=== PATIENT | male | born 1960 | race Caucasian/White ===

== ENCOUNTER 2019-08-16 10:43 | Day surgery (SDC) | payer OTHER ==
[~2019-08-16] VITALS: Ht 180.3 cm; Wt 101.2 kg
[~2019-08-16 10:43] MED LIST: AMLO5TAB2 PO; DOCU5LIQ PO; FERROUS GLUCONATE PO; IRBE150T12 PO; IRONTAB2 PO; LEVA1TAB2 PO; LEVO2TA PO; LORTTAB5 PO; MULTCAP12 PO; NEUR100C PO; NORV2TAB PO; NS 1,000 ML IV ONE; OMEP40CA2 PO; OMEP40CA97 PO; REGL5TAB2 PO; SUCR1TA PO; SYNT150T PO; SYNT25TA PO; TRAM50TA2 PO; TYLE325T5 PO; ULTR50TA PO; [UNRECOGNIZED DRUG - CODE] PO
[2019-08-16] MEDS ORDERED: LIDOCAINE 2% INJ 100 MG/5 ML SDV (FOR ANES.) As Ordered ONE (12:23)
[2019-08-16] MEDS ORDERED: propofoL 200 MG/20 ML VIAL As Ordered ONE (12:23)
--- NOTE | 2019-08-16 12:44 | ROOR ---
Patient Name: Taz Otero Procedure Date: 08/16/2019 12:26 PM Date of : 1960 Age: 59 Room: [facility] Gender: Male Note Status: Finalized Procedure: Upper Endoscopy + Biopsies Indications: Dysphagia, Exclusion of Hampton's esophagus Providers: José Miguel Sanabria MD Referring MD: Barbara Fernandez DO Requesting Provider: Medicines: Monitored Anesthesia Care Complications: No immediate complications. Procedure: Pre-Anesthesia Assessment: - The heart rate, respiratory rate, oxygen saturations, blood pressure, adequacy of pulmonary ventilation, and response to care were monitored throughout the procedure. The Endoscope was introduced through the mouth, and advanced to the second part of duodenum. The upper GI endoscopy was accomplished without difficulty. The patient tolerated the procedure well. Findings: The Z-line was variable and was found 40 cm from the incisors. Multiple biopsies were obtained with cold forceps for evaluation to rule out Hampton's Esophagus randomly at the gastroesophageal junction. A small hiatal hernia was present. No other significant abnormalities were identified in a careful examination of the stomach. The exam of the duodenum was otherwise normal. Impression: - Z-line variable, 40 cm from the incisors. - Small hiatal hernia. - Multiple biopsies were obtained at the gastroesophageal junction. - The examination was otherwise normal. Recommendation: - Patient has a contact number available for emergencies. The signs and symptoms of potential delayed complications were discussed with the patient. Return to normal activities tomorrow. Written discharge instructions were provided to the patient. - Resume previous diet. - Discharge patient to home. - Follow an antireflux regimen. - Continue present medications. - Await pathology results. - Telephone GI clinic for pathology results in 1 week. - Return to referring physician. - The findings and recommendations were discussed with the patient's family. José Miguel Sanabria MD José Miguel Sanabria MD 08/16/2019 12:44:15 PM Electronically signed by José Miguel Sanabria MD Number of Addenda: 0 Note Initiated On: 08/16/2019 12:26 PM Estimated Blood Loss: Estimated blood loss: none.
[2019-08-16 13:06] VITALS: BP 174/92
== END 2019-08-16 13:17 | disposition home or self-care (01) ==
LOC: M OPP 10:43
PROVIDERS: ATTEND Internal Medicine Gastroenterology
DX: K22.8 Other specified diseases of esophagus (principal); K44.9 Diaphragmatic hernia without obstruction or gangrene; R13.10 Dysphagia, unspecified; F17.210 Nicotine dependence, cigarettes, uncomplicated; Z79.899 Other long term (current) drug therapy; Z88.0 Allergy status to penicillin; Z88.2 Allergy status to sulfonamides; Z88.8 Allergy status to other drugs, medicaments and biological substances; Z87.19 Personal history of other diseases of the digestive system

== ENCOUNTER → 2019-09-08 | Outpatient (REF) | payer OTHER ==
[~2019-09-08] MED LIST changes: -IRBE150T12 PO; +IRBE150T7 PO; -NS 1,000 ML IV ONE
[2019-09-08 17:03] LABS: PERCENT SATURATION 4.9 % (19.7-50.0)
== END ==
LOC: M LAB REF 16:24
PROVIDERS: ATTEND Internal Medicine
DX: D50.9 Iron deficiency anemia, unspecified (principal)

== ENCOUNTER → 2020-03-15 | Outpatient (CLI) | payer OTHER ==
[~2020-03-15] MED LIST changes: +FERR32TA PO; +VITA500T40 PO
== END ==
LOC: M LABSMTC 10:45
PROVIDERS: ATTEND Anesthesiology
DX: Z01.812 Encounter for preprocedural laboratory examination (principal)
CPT/HCPCS: C9803; U0003

== ENCOUNTER 2020-03-20 09:41 | Day surgery (SDC) | payer OTHER ==
[~2020-03-20] VITALS: Ht 180.3 cm; Wt 96.6 kg
[~2020-03-20 09:41] MED LIST changes: +NS 1,000 ML IV ONE
[2020-03-20] MEDS ORDERED: propofoL 200 MG/20 ML VIAL As Ordered ONE (10:40)
[2020-03-20] MEDS ORDERED: LIDOCAINE 2% 100MG/5ML SDV (FOR ANES.) As Ordered ONE (10:46)
[2020-03-20 11:45] VITALS: BP 92/93
--- NOTE | 2020-03-27 11:31 | ROOR ---
Patient Name: Taz Otero Procedure Date: 03/20/2020 9:22 AM Date of : 1960 Age: 59 Room: [facility] Gender: Male Note Status: Finalized Procedure: Total Colonoscopy to Cecum + Biopsy Polypectomy Indications: Rectal bleeding Providers: José Miguel Sanabria MD Referring MD: Barbara Fernandez DO Requesting Provider: Medicines: Monitored Anesthesia Care Complications: No immediate complications. Procedure: Pre-Anesthesia Assessment: - The heart rate, respiratory rate, oxygen saturations, blood pressure, adequacy of pulmonary ventilation, and response to care were monitored throughout the procedure. The Colonoscope was introduced through the anus and advanced to the cecum, identified by appendiceal orifice and ileocecal valve. The colonoscopy was performed without difficulty. The patient tolerated the procedure well. The quality of the bowel preparation was good. Findings: The perianal and digital rectal examinations were normal. Non-bleeding external hemorrhoids were found during retroflexion. The hemorrhoids were medium-sized and Grade II (internal hemorrhoids that prolapse but reduce spontaneously). Multiple small and large-mouthed diverticula were found in the recto-sigmoid colon, sigmoid colon and descending colon. A diminutive polyp was found at 30 cm proximal to the anus. The polyp was sessile. The polyp was removed with a cold biopsy forceps. Resection and retrieval were complete. The exam was otherwise without abnormality on direct and retroflexion views. Impression: - Non-bleeding external hemorrhoids. - Diverticulosis in the recto-sigmoid colon, in the sigmoid colon and in the descending colon. - One diminutive polyp at 30 cm proximal to the anus, removed with a cold biopsy forceps. Resected and retrieved. - The examination was otherwise normal on direct and retroflexion views. - The exam was otherwise normal to the cecum. Recommendation: - Patient has a contact number available for emergencies. The signs and symptoms of potential delayed complications were discussed with the patient. Return to normal activities tomorrow. Written discharge instructions were provided to the patient. - Discharge patient to home. - High fiber diet. - Anusol (pramoxine) HC cream: Apply externally BID. - Repeat colonoscopy in 10 years for screening purposes. - Return to referring physician. - The findings and recommendations were discussed with the patient. - Await pathology results. - Telephone GI clinic for pathology results in 1 week. José Miguel Sanabria MD José Miguel Sanabria MD 03/20/2020 11:22:05 AM Number of Addenda: 0 Note Initiated On: 03/20/2020 9:22 AM Estimated Blood Loss: Estimated blood loss: none.
== END 2020-03-20 11:47 | disposition home or self-care (01) ==
LOC: M OPP 09:41
PROVIDERS: ATTEND Internal Medicine Gastroenterology
DX: K64.1 Second degree hemorrhoids (principal); K64.4 Residual hemorrhoidal skin tags; D12.6 Benign neoplasm of colon, unspecified; K62.5 Hemorrhage of anus and rectum; K57.30 Diverticulosis of large intestine without perforation or abscess without bleeding; I10 Essential (primary) hypertension; E03.9 Hypothyroidism, unspecified; F17.210 Nicotine dependence, cigarettes, uncomplicated; Z79.899 Other long term (current) drug therapy; Z88.0 Allergy status to penicillin; Z88.2 Allergy status to sulfonamides; Z88.8 Allergy status to other drugs, medicaments and biological substances

== ENCOUNTER → 2020-08-20 | Outpatient (REF) | payer BC ==
[~2020-08-20] MED LIST changes: -NS 1,000 ML IV ONE
[2020-08-20 12:36] LABS: PERCENT SATURATION 10.9 % (19.7-50.0)
== END ==
LOC: M LAB REF 11:25
PROVIDERS: ATTEND Internal Medicine
DX: D51.9 Vitamin B12 deficiency anemia, unspecified (principal); D50.9 Iron deficiency anemia, unspecified

== ENCOUNTER → 2020-10-28 | Outpatient (CLI) | payer BC ==
[~2020-10-28] MED LIST changes: +GASTROGRAFIN SOLUTION 30ML (Q9963) As Ordered ONE
--- NOTE | 2020-10-28 10:47 | REP ---
INDICATION: DIVERTICULOSIS COMPARISON: 05/27/2009 TECHNIQUE: Axial noncontrast images from the lung bases to the pubic symphysis with coronal and sagittal reformations. This CT examination was performed using the following dose reduction techniques: Automated exposure control, adjustment of mA and/or kv according to the patient's size, and use of iterative reconstruction technique. FINDINGS: Lung bases are clear. Visualized heart and pericardium normal. Liver includes 2.2 cm cystic structure in the left lobe approaching the dome which is increased from prior examination and likely represent cyst. Spleen, pancreas, gallbladder, bilateral adrenal glands and kidneys are normal. There is evidence for prior Agl fundoplication. Few scattered sigmoid diverticula noted without acute diverticulitis. Remainder of the small and large bowel is grossly unremarkable. Pelvis demonstrates mildly enlarged prostate gland with calcifications and mass effect on the base of the bladder. Small fat containing left inguinal hernia noted. No ascites. No free air. No adenopathy. No focal inflammatory stranding. Abdominal aorta without aneurysm. Musculoskeletal structures are intact and without acute osseous abnormality. IMPRESSION: No acute abdominopelvic pathology appreciated. Few scattered sigmoid diverticula without acute diverticulitis. 2.2 cm presumed hepatic cyst in the left lobe increased from 2008. Mild prostatomegaly with mass effect on the base of the bladder. <Electronically signed by Dennis Prabhakar > 10/28/20 [id number]
== END ==
LOC: M RAD 08:07
PROVIDERS: ATTEND Internal Medicine
DX: K57.30 Diverticulosis of large intestine without perforation or abscess without bleeding (principal); N40.0 Benign prostatic hyperplasia without lower urinary tract symptoms; K40.90 Unilateral inguinal hernia, without obstruction or gangrene, not specified as recurrent; K76.89 Other specified diseases of liver
CPT/HCPCS: 74176; Q9963

== ENCOUNTER → 2020-11-13 | Outpatient (CLI) | payer BC ==
[~2020-11-13] MED LIST changes: -GASTROGRAFIN SOLUTION 30ML (Q9963) As Ordered ONE
--- NOTE | 2020-11-13 09:17 | REP ---
INDICATION: EVALUATE HEPATIC CYST SEEN ON CT SCAN. FINDINGS: Multiple ultrasonographic images of the liver show the hepatic parenchymal echo texture to appear unremarkable. Seen in the left lobe of the liver there is a 2 x 1.7 x 1.4 cm sized anechoic structure with a single thin septation or in fact 2 separate anechoic structures abutting 1 another. There are no focal solid masses. There is no intrahepatic ductal dilatation. The common bile duct measures approximately 4 mm in its greatest transverse dimension. Multiple ultrasonographic images of the gallbladder show no focal or diffuse gallbladder wall thickening. There are no echogenic foci within the gallbladder lumen, which casts acoustic shadows. There is no pericholecystic edema. Images of the pancreatic region show no gross abnormality. The imaged portion of the right kidney shows a 1 cm sized anechoic structure consistent with a cyst. IMPRESSION: Hepatic cyst as described above. A tiny right renal cyst is also identified. Accredited by the [employer] in General Ultrasound. <Electronically signed by Tin Ye > 11/13/20 [id number]
== END ==
LOC: M RAD 07:20
PROVIDERS: ATTEND Internal Medicine
DX: D37.6 Neoplasm of uncertain behavior of liver, gallbladder and bile ducts (principal); N28.1 Cyst of kidney, acquired; K76.89 Other specified diseases of liver

== ENCOUNTER → 2021-02-11 | Outpatient (REF) | payer BC ==
[~2021-02-11] MED LIST changes: +OMEP40CA4 PO; -OMEP40CA97 PO
[2021-02-11 12:20] LABS: PERCENT SATURATION 4.7 % (19.7-50.0)
== END ==
LOC: M LAB REF 11:24
PROVIDERS: ATTEND Internal Medicine
DX: D50.9 Iron deficiency anemia, unspecified (principal)

== ENCOUNTER → 2021-08-21 | Outpatient (REF) | payer BC ==
[2021-08-21 12:50] LABS: PERCENT SATURATION 18.1 % (19.7-50.0)
== END ==
LOC: M LAB REF 12:04
PROVIDERS: ATTEND Internal Medicine
DX: D50.9 Iron deficiency anemia, unspecified (principal)

== ENCOUNTER → 2022-02-26 | Outpatient (REF) | payer BC ==
[2022-02-26 13:47] LABS: PERCENT SATURATION 12.2 % (19.7-50.0)
== END ==
LOC: M LAB REF 12:08
PROVIDERS: ATTEND Internal Medicine
DX: D50.9 Iron deficiency anemia, unspecified (principal)

== ENCOUNTER → 2022-09-03 | Outpatient (REF) | payer BC ==
[2022-09-03 18:16] LABS: PERCENT SATURATION 9.8 % (19.7-50.0)
[2022-09-03 18:20] LABS: FERRITIN 22.2 NG/ML (10.5-307.3)
== END ==
LOC: M LAB REF 16:04
PROVIDERS: ATTEND Internal Medicine
DX: D50.9 Iron deficiency anemia, unspecified (principal)

== ENCOUNTER → 2022-12-03 | Outpatient (CLI) | payer BC ==
[2022-12-03 08:42] LABS: BASO # 0.2 10^3/uL (0.0-0.2); BASO % 2.3 % (0.0-1.0); EOS # 0.3 10^3/uL (0.0-0.5); EOS % 4.1 % (0.0-3.0); HEMATOCRIT 44.2 % (42.0-52.0); HEMOGLOBIN 14.4 g/dl (13.5-17.5); LYMPH # 1.2 10^3/uL (1.5-5.0); LYMPH % 16.6 % (24.0-44.0); MEAN CORPUSCULAR HEMOGLOBIN 30.3 pg (27.0-33.0); MEAN CORPUSCULAR HGB CONC 32.6 g/dl (32.0-36.5); MEAN CORPUSCULAR VOLUME 93.1 fl (80.0-96.0); MONO # 0.4 10^3/uL (0.0-0.8); MONO % 5.5 % (2.0-8.0); NEUTROPHILS % 71.1 % (36.0-66.0); PLATELET COUNT, AUTOMATED 255 10^3/uL (150-450); RED BLOOD COUNT 4.75 10^6/uL (4.30-6.10)
[2022-12-03 08:52] LABS: INR 0.94; PROTHROMBIN TIME 12.8 SECONDS (12.5-14.5)
[2022-12-03 08:53] LABS: PARTIAL THROMBOPLASTIN TIME 32.4 SECONDS (24.8-34.2)
[2022-12-03 09:11] LABS: ALKALINE PHOSPHATASE 55 U/L (46-116); ALT/SGPT 17 U/L (7.0-40); AST/SGOT 16 U/L (<34); BILIRUBIN,DIRECT 0.1 MG/DL (<0.4); BILIRUBIN,TOTAL 0.4 MG/DL (0.3-1.2); BLOOD UREA NITROGEN 16 MG/DL (9-23); CREATININE FOR GFR 0.75 MG/DL (0.70-1.30); GLOMERULAR FILTRATION RATE > 60.0 (>49); IRON (FE) 58 UG/DL (65-175); PERCENT SATURATION 18.5 % (19.7-50.0); TOTAL IRON BINDING CAPACITY 314 UG/DL (250-425); TOTAL PROTEIN 6.7 G/DL (5.7-8.2)
[2022-12-03 09:13] LABS: FERRITIN 20.4 NG/ML (10.5-307.3); FOLATE 14.2 NG/ML (>5.4); VITAMIN B12 LEVEL 344 PG/ML (211-911)
== END ==
LOC: M LAB 08:09
PROVIDERS: ATTEND Internal Medicine Gastroenterology
DX: K62.5 Hemorrhage of anus and rectum (principal)

== ENCOUNTER → 2023-03-04 | Outpatient (REF) | payer BC ==
[2023-03-04 13:47] LABS: PERCENT SATURATION 24.1 % (19.7-50.0)
[2023-03-04 13:50] LABS: FERRITIN 9.2 NG/ML (10.5-307.3)
== END ==
LOC: M LAB REF 12:23
PROVIDERS: ATTEND Internal Medicine
DX: D50.9 Iron deficiency anemia, unspecified (principal)

== ENCOUNTER → 2023-05-11 | Outpatient (CLI) | payer BC | LOC: M RAD 10:25 | PROVIDERS: ATTEND Physician Assistant Medical | DX: M25.551 Pain in right hip (principal); M16.11 Unilateral primary osteoarthritis, right hip ==

== ENCOUNTER → 2023-10-13 | Outpatient (REF) | payer BC ==
[~2023-10-13] MED LIST changes: +IRBE150T27 PO; -IRBE150T7 PO
== END ==
LOC: M LABDRWAD 16:05
PROVIDERS: ATTEND Orthopaedic Surgery Orthopaedic Surgery of the Spine
DX: Z01.818 Encounter for other preprocedural examination (principal); M48.062 Spinal stenosis, lumbar region with neurogenic claudication; M51.36 Other intervertebral disc degeneration, lumbar region; F17.200 Nicotine dependence, unspecified, uncomplicated

== ENCOUNTER 2023-11-25 15:22 | Emergency (ER) | payer BC ==
[~2023-11-25] VITALS: Ht 180.3 cm; Wt 106.0 kg
[2023-11-25 17:56] LABS: BASO # 0.2 10^3/uL (0.0-0.2); EOS # 0.4 10^3/uL (0.0-0.5); EOS % 4.3 % (0.0-3.0); HEMOGLOBIN 7.6 g/dl (13.5-17.5); LYMPH # 1.9 10^3/uL (1.5-5.0); LYMPH % 20.7 % (24.0-44.0); MEAN CORPUSCULAR HEMOGLOBIN 18.9 pg (27.0-33.0); MEAN CORPUSCULAR HGB CONC 28.1 g/dl (32.0-36.5); MEAN CORPUSCULAR VOLUME 67.2 fl (80.0-96.0); MONO # 0.7 10^3/uL (0.0-0.8); MONO % 6.9 % (2.0-8.0); NEUTROPHILS # 6.2 10^3/uL (1.5-8.5); NEUTROPHILS % 65.8 % (36.0-66.0); PLATELET COUNT, AUTOMATED 379 10^3/uL (150-450); RED BLOOD COUNT 4.02 10^6/uL (4.30-6.10); WHITE BLOOD COUNT 9.4 10^3/uL (4.0-10.0)
[2023-11-25 18:13] LABS: INR 1.08; PARTIAL THROMBOPLASTIN TIME 27.3 SECONDS (24.8-34.2); PROTHROMBIN TIME 13.7 SECONDS (12.5-14.5)
[2023-11-25 18:22] LABS: ETHYL ALCOHOL (ETHANOL) < 0.003 % (0.000-0.010)
[2023-11-25 18:24] LABS: ALBUMIN 4.1 G/DL (3.2-5.2); ALKALINE PHOSPHATASE 60 U/L (46-116); ALT/SGPT 19 U/L (7.0-40); AST/SGOT 11 U/L (<34); BILIRUBIN,DIRECT 0.1 MG/DL (<0.4); BILIRUBIN,TOTAL 0.3 MG/DL (0.3-1.2); BLOOD UREA NITROGEN 15 MG/DL (9-23); CALCIUM LEVEL 9.1 MG/DL (8.3-10.6); CARBON DIOXIDE LEVEL 27 MMOL/L (20-31); CHLORIDE LEVEL 106 MMOL/L (98-107); CK-MB VALUE MASS < 1.0 NG/ML (<3.6); CPK CREATINE PHOSPHOKINASE 101 U/L (46-171); GLOMERULAR FILTRATION RATE > 60.0 (>49); GLUCOSE, FASTING 91 MG/DL (74-106); MB/CK RELATIVE INDEX 0.99 (< OR =4); POTASSIUM SERUM 3.9 MMOL/L (3.5-5.1); SODIUM LEVEL 139 MMOL/L (136-145); TOTAL PROTEIN 7.2 G/DL (5.7-8.2)
[2023-11-25 18:26] LABS: LIPASE 26 U/L (12-53)
[2023-11-25 19:03] VITALS: BP 160/98; TEMP 97.9; O2SAT 99
== END 2023-11-25 19:13 | disposition home or self-care (01) ==
LOC: M ED 15:22
DX: D64.9 Anemia, unspecified (principal); I10 Essential (primary) hypertension; E03.9 Hypothyroidism, unspecified; Z87.891 Personal history of nicotine dependence; Z88.0 Allergy status to penicillin; Z88.2 Allergy status to sulfonamides; Z88.8 Allergy status to other drugs, medicaments and biological substances; Z79.811 Long term (current) use of aromatase inhibitors; Z79.899 Other long term (current) drug therapy

== ENCOUNTER → 2023-12-20 | Outpatient (REF) | payer BC | LOC: M LABWUC 16:29 | PROVIDERS: ATTEND Internal Medicine | DX: D64.9 Anemia, unspecified (principal) ==

== ENCOUNTER 2023-12-21 06:26 | Outpatient (CLI) | payer BC ==
[~2023-12-21] VITALS: Ht 177.8 cm; Wt 102.3 kg
[2023-12-21] MEDS ORDERED: NS 250 ML IV ONE (07:15)
[2023-12-21 07:51] VITALS: BP 133/75; TEMP 97.7; O2SAT 100
[2023-12-21 08:10] VITALS: BP 143/73; TEMP 98; O2SAT 98
[2023-12-21 09:42] VITALS: BP 143/77; TEMP 97.6; O2SAT 100
[2023-12-21 10:00] VITALS: BP 142/80; O2SAT 99
[2023-12-21 11:00] VITALS: BP 133/78; O2SAT 100
[2023-12-21 11:43] VITALS: BP 148/76; O2SAT 100
== END 2023-12-21 11:50 ==
LOC: M INFU 06:26
PROVIDERS: ATTEND Internal Medicine
DX: D50.9 Iron deficiency anemia, unspecified (principal); Z88.0 Allergy status to penicillin; Z88.2 Allergy status to sulfonamides; Z88.8 Allergy status to other drugs, medicaments and biological substances
CPT/HCPCS: 36430; P9016